=== PATIENT | female | born 1945 | race Caucasian/White ===

== ENCOUNTER 2018-04-14 13:28 | Inpatient (IN) ==
[2018-04-14] MEDS ORDERED: ALBUTEROL 2.5 MG/3 ML NEB RESP TX STA (13:40)
[2018-04-14] MEDS ORDERED: FUROSEMIDE 100 MG/10 ML VIAL IV STA (13:40)
[2018-04-14] MEDS ORDERED: SODIUM CHLORIDE 0.9% 1,000 ML IV STA ×2 (13:53→14:52)
[2018-04-14] MEDS ORDERED: NOREPINEPHRINE 4 MG/4 ML VIAL IV ONE ×3 (13:59→18:03)
[2018-04-14] MEDS ORDERED: FUROSEMIDE 100 MG/10 ML VIAL ONE (14:00)
[2018-04-14] MEDS: NOREPINEPHRINE 8 MG in SODIUM CHLORIDE 0.9% 242 ML IV PRN ×2 (14:07→18:12)
[2018-04-14 14:14] LABS: Basophils % 0.3 % (0.0-0.8); Eosinophils # 0.1 10*3/uL (0.0-0.87); Eosinophils % 0.6 % (0.00-10.9); Hematocrit 43.1 VOL% (35.7-47.0); Hemoglobin 13.8 GM/DL (12.0-16.0); Immature Granulocytes % 1.3 %; Immature Granulocytes Absolute 0.13 #; Lymphocytes # 1.7 10*3/uL (1.4-4.0); Lymphocytes % 17.7 % (21.3-54.2); Mean Corpuscular Hemoglobin 30 PG (27-34); Mean Corpuscular Volume 94.7 FL (87-102); Mean Platelet Volume 10.6 FL (9.6-12.0); Monocytes # 0.3 10*3/uL (0.11-0.8); Monocytes % 3.5 % (1.7-12.7); Neutrophils # 7.5 10*3/uL (1.4-7.4); Neutrophils % 76.6 % (38.7-73.9); Platelet Count 236 T/CUMM (130-400); Red Blood Count 4.55 MC/CUMM (3.8-5.5); Red Cell Distribution Width 14.4 % (9.3-17.3); White Blood Count 9.8 T/CUMM (4-12)
[2018-04-14 14:26] LABS: Apearance,Urine CLOUDY (Clear); Bilirubin,Urine Negative (Negative); Blood, Urine Negative (Negative); Glucose,Urine (UA) 50 mg/dL (Negative); Hyaline Casts,Urine 9 /LPF (0-3); Ketones,Urine Negative (Negative); Mucus,Urine Occasional /LPF (Occasional); Nitrite,Urine Negative (Negative); Protein,Urine >=500 MG/DL; RBC,Urine 11 /HPF (0-4); Squamous Epithelial Cell,Urine Occasional /HPF (0-10); Urine Color Amber (Yellow); Urine Specific Gravity 1.012 (1.001-1.035); Urine Urobilinogen < 2.0 EU/DL (0.2-1.0); WBC,Urine 15 /HPF (0-6)
[2018-04-14 14:32] LABS: PT Patient Result 10.4 SECS; Partial Thromboplastin Time 24.3 SECS (0-40)
[2018-04-14 14:34] LABS: Albumin 3.1 G/DL (3.4-5.0); Bilirubin,Total 0.5 MG/DL (0.2-1.0); Calcium 8.5 MG/DL (8.5-10.1); Osmolality,Calculated 292.1 MOS/KG (273-304); Potassium 4.4 MMOL/L (3.5-5.1); Total Protein 6.8 G/DL (6.4-8.3)
[2018-04-14 14:38] LABS: Lactic Acid 3.8 MMOL/L (0.4-2.0)
[2018-04-14 14:40] LABS: ABG Base Excess -3.2 MMOL/L (-2.5-2.5); ABG HCO3 24.3 MMOL/L (20-26); ABG Oxygen Saturation 99.5 % (95-100); ABG PCO2 53.6 MM HG (35-48); ABG PH 7.274 (7.35-7.45); ABG TCO2 25.9 MMOL/L (23-27); Pt O2 Delivery Device Ventilator
[2018-04-14 14:44] LABS: ABG PO2 509.5 MM HG (80-95)
[2018-04-14] MEDS ORDERED: PROPOFOL 1,000 MG/100 ML BOTTLE IV ONE (14:46)
[2018-04-14 14:48] LABS: Barbiturates Screen,Urine Negative (Negative); Benzodiazepines Screen,Urine Positive (Negative); Cannabinoid Screen,Urine Negative (Negative); Opiate Screen,Urine Negative (Negative); Phencyclidine Screen,Urine Negative (Negative)
[2018-04-14] MEDS ORDERED: cefTRIAXone 1,000 MG in SODIUM CHLORIDE 0.9% 100 ML IV STA (14:52)
[2018-04-14] MEDS: PROPOFOL 1,000 MG/100 ML BOTTLE IV SCH ×2 (14:59→21:49)
[2018-04-14] MEDS ORDERED: ACETAMINOPHEN 325 MG TABLET PO PRN (15:39)
[2018-04-14] MEDS ORDERED: DEXTROSE 50% 25 GM/50 ML VIAL IV PRN (17:03)
[2018-04-14] MEDS ORDERED: GLUCAGON 1 MG VIAL IM PRN (17:03)
[2018-04-14] MEDS: SODIUM CHLORIDE 0.9% 1,000 ML IV SCH (17:25)
[2018-04-14] MEDS: ENOXAPARIN 40 MG/0.4 ML SYRINGE SUBCUT SCH (17:25)
[2018-04-14] MEDS: INSULIN REGULAR 100 UNIT/ML SUBCUT SCH (18:34)
[2018-04-14 19:15] LABS: ABG Base Excess -2.7 MMOL/L (-2.5-2.5); ABG HCO3 22.2 MMOL/L (20-26); ABG Oxygen Saturation 98.5 % (95-100); ABG PCO2 37.5 MM HG (35-48); ABG PH 7.377 (7.35-7.45); ABG TCO2 19.2 MMOL/L (23-27); Allen Test Positive; Pt O2 Delivery Device Ventilator
[2018-04-15] MEDS: SODIUM CHLORIDE 0.9% 1,000 ML IV SCH ×3 (00:26→16:22)
[2018-04-15] MEDS: INSULIN REGULAR 100 UNIT/ML SUBCUT SCH ×5 (01:25→23:38)
[2018-04-15] MEDS: PROPOFOL 1,000 MG/100 ML BOTTLE IV SCH ×11 (01:27→23:52)
[2018-04-15] MEDS ORDERED: fentaNYL 100 MCG/2 ML VIAL IV ONE (03:42)
[2018-04-15 03:59] LABS: ABG Base Excess -2.3 MMOL/L (-2.5-2.5); ABG Oxygen Saturation 97.7 % (95-100); ABG PCO2 27.5 MM HG (35-48); ABG PH 7.479 (7.35-7.45); ABG PO2 102.7 MM HG (80-95); ABG TCO2 20.8 MMOL/L (23-27); Allen Test Positive; Pt O2 Delivery Device Ventilator
[2018-04-15 04:21] LABS: Basophils % 0.3 % (0.0-0.8); Eosinophils # 0.1 10*3/uL (0.0-0.87); Eosinophils % 0.6 % (0.00-10.9); Hematocrit 34.7 VOL% (35.7-47.0); Hemoglobin 11.5 GM/DL (12.0-16.0); Immature Granulocytes % 0.3 %; Immature Granulocytes Absolute 0.03 #; Lymphocytes # 2.9 10*3/uL (1.4-4.0); Lymphocytes % 25.4 % (21.3-54.2); Mean Corpuscular HGB Conc 33.1 GM/DL (32-36); Mean Corpuscular Hemoglobin 30 PG (27-34); Mean Corpuscular Volume 91.6 FL (87-102); Monocytes # 0.6 10*3/uL (0.11-0.8); Monocytes % 5.2 % (1.7-12.7); Neutrophils # 7.8 10*3/uL (1.4-7.4); Neutrophils % 68.2 % (38.7-73.9); Platelet Count 169 T/CUMM (130-400); Red Blood Count 3.79 MC/CUMM (3.8-5.5); Red Cell Distribution Width 14.6 % (9.3-17.3); White Blood Count 11.4 T/CUMM (4-12)
[2018-04-15 04:42] LABS: Hypochromasia 1+; Lymphocytes 32 % (20-55); Segmented Neutrophils 60 % (50-85); Total Cells Counted 100
[2018-04-15 04:43] LABS: Atypical Lymphocytes Few
[2018-04-15 04:47] LABS: Calcium 7.8 MG/DL (8.5-10.1); Osmolality,Calculated 292.8 MOS/KG (273-304); Potassium 3.2 MMOL/L (3.5-5.1)
[2018-04-15] MEDS: FAMOTIDINE 20 MG/2 ML VIAL IV SCH ×2 (09:49→20:30)
[2018-04-15] MEDS: POTASSIUM CHLORIDE 20 MEQ/15 ML UDCUP PER TUBE PRN ×4 (10:09→17:26)
[2018-04-15 10:17] LABS: ABG Base Excess -4.2 MMOL/L (-2.5-2.5); ABG HCO3 20.9 MMOL/L (20-26); ABG Oxygen Saturation 94.7 % (95-100); ABG PCO2 38.6 MM HG (35-48); ABG PH 7.345 (7.35-7.45); ABG TCO2 18.5 MMOL/L (23-27)
[2018-04-15] MEDS: ENOXAPARIN 40 MG/0.4 ML SYRINGE SUBCUT SCH (15:48)
[2018-04-15] MEDS ORDERED: ENALAPRIL 2.5 MG/2 ML VIAL IV ONE (18:30)
[2018-04-15] MEDS ORDERED: hydrALAZINE 20 MG/1 ML VIAL ONE (20:18)
[2018-04-15] MEDS: hydrALAZINE 20 MG/1 ML VIAL IV PRN (20:23)
[2018-04-16] MEDS: SODIUM CHLORIDE 0.9% 1,000 ML IV SCH ×3 (00:20→16:57)
[2018-04-16] MEDS: POTASSIUM CHLORIDE 20 MEQ/15 ML UDCUP PER TUBE PRN ×3 (00:30→08:59)
[2018-04-16] MEDS: PROPOFOL 1,000 MG/100 ML BOTTLE IV SCH ×5 (02:00→15:06)
[2018-04-16] MEDS: hydrALAZINE 20 MG/1 ML VIAL IV PRN ×4 (02:29→22:36)
[2018-04-16 03:39] LABS: ABG Base Excess -3.5 MMOL/L (-2.5-2.5); ABG HCO3 21.5 MMOL/L (20-26); ABG Oxygen Saturation 98.3 % (95-100); ABG PCO2 27.9 MM HG (35-48); ABG PH 7.446 (7.35-7.45); ABG TCO2 16.7 MMOL/L (23-27)
[2018-04-16] MEDS ORDERED: MORPHINE 4 MG/1 ML VIAL IV ONE (04:12)
[2018-04-16] MEDS ORDERED: MORPHINE 4 MG/1 ML VIAL ONE (04:18)
[2018-04-16] MEDS: LISINOPRIL 20 MG TABLET PO SCH ×2 (04:24→08:58)
[2018-04-16] MEDS: METOPROLOL TARTRATE 50 MG TABLET PO SCH ×3 (04:24→21:46)
[2018-04-16 04:58] LABS: Basophils # 0.1 10*3/uL (0.0-0.2); Basophils % 0.4 % (0.0-0.8); Eosinophils # 0.1 10*3/uL (0.0-0.87); Eosinophils % 0.9 % (0.00-10.9); Hematocrit 37.5 VOL% (35.7-47.0); Hemoglobin 12.2 GM/DL (12.0-16.0); Immature Granulocytes % 0.7 %; Immature Granulocytes Absolute 0.08 #; Lymphocytes # 2.3 10*3/uL (1.4-4.0); Mean Corpuscular HGB Conc 32.5 GM/DL (32-36); Mean Corpuscular Hemoglobin 30 PG (27-34); Mean Corpuscular Volume 91.2 FL (87-102); Mean Platelet Volume 11.7 FL (9.6-12.0); Monocytes # 0.9 10*3/uL (0.11-0.8); Monocytes % 7.4 % (1.7-12.7); Neutrophils # 8.5 10*3/uL (1.4-7.4); Neutrophils % 71.6 % (38.7-73.9); Platelet Count 182 T/CUMM (130-400); Red Blood Count 4.11 MC/CUMM (3.8-5.5); White Blood Count 11.8 T/CUMM (4-12)
[2018-04-16 05:31] LABS: Hypochromasia 1+; Platelet Estimate Adequate
[2018-04-16] MEDS: INSULIN REGULAR 100 UNIT/ML SUBCUT SCH ×3 (06:00→17:29)
[2018-04-16 06:16] LABS: Calcium 8.7 MG/DL (8.5-10.1); Osmolality,Calculated 292.6 MOS/KG (273-304); Potassium 3.7 MMOL/L (3.5-5.1)
[2018-04-16] MEDS: FAMOTIDINE 20 MG/2 ML VIAL IV SCH ×2 (08:59→20:29)
[2018-04-16] MEDS: amLODIPine 10 MG TABLET PO SCH (08:59)
[2018-04-16] MEDS ORDERED: INFLUENZA VIRUS VACCINE 0.5 ML SYRINGE IM ONE (09:00)
[2018-04-16 11:50] LABS: ABG Base Excess -3.9 MMOL/L (-2.5-2.5); ABG HCO3 21.2 MMOL/L (20-26); ABG Oxygen Saturation 97.2 % (95-100); ABG PH 7.403 (7.35-7.45); ABG TCO2 17.3 MMOL/L (23-27)
[2018-04-16 13:36] LABS: ABG Base Excess -3.6 MMOL/L (-2.5-2.5); ABG HCO3 21.4 MMOL/L (20-26); ABG Oxygen Saturation 99.6 % (95-100); ABG PH 7.359 (7.35-7.45); ABG TCO2 18.6 MMOL/L (23-27)
[2018-04-16] MEDS: LORazepam 2 MG/1 ML VIAL IV PRN ×3 (16:22→23:05)
[2018-04-16] MEDS: ENALAPRIL 2.5 MG/2 ML VIAL IV SCH ×2 (16:22→21:38)
[2018-04-16] MEDS: ENOXAPARIN 40 MG/0.4 ML SYRINGE SUBCUT SCH (16:59)
[2018-04-16] MEDS ORDERED: DILTIAZEM 50 MG/10 ML VIAL IV ONE (23:23)
[2018-04-16] MEDS ORDERED: DILTIAZEM 25 MG/5 ML VIAL IV ONE (23:25)
[2018-04-16] MEDS: dilTIAZem Drip 125 MG/125 ML PREMIX IV SCH (23:30)
[2018-04-16] MEDS ORDERED: HALOPERIDOL 5 MG/ML AMP IV ONE (23:50)
[2018-04-16] MEDS ORDERED: HALOPERIDOL 5 MG/ML AMP IV PRN (23:50)
[2018-04-17 00:28] LABS: ABG Base Excess -3.9 MMOL/L (-2.5-2.5); ABG HCO3 17.9 MMOL/L (20-26); ABG Oxygen Saturation 97.6 % (95-100); ABG PCO2 25.2 MM HG (35-48); ABG PO2 103.5 MM HG (80-95); ABG TCO2 18.7 MMOL/L (23-27); Allen Test Positive
[2018-04-17] MEDS: SODIUM CHLORIDE 0.9% 1,000 ML IV SCH ×3 (00:52→17:29)
[2018-04-17] MEDS: INSULIN REGULAR 100 UNIT/ML SUBCUT SCH ×4 (00:52→17:28)
[2018-04-17] MEDS ORDERED: METOPROLOL TARTRATE 5 MG/5 ML VIAL IV ONE (01:07)
[2018-04-17 03:50] LABS: ABG Base Excess -1.9 MMOL/L (-2.5-2.5); ABG HCO3 22.8 MMOL/L (20-26); ABG Oxygen Saturation 97.4 % (95-100); ABG PCO2 36.1 MM HG (35-48); ABG PH 7.399 (7.35-7.45); ABG PO2 95.1 MM HG (80-95); ABG TCO2 19.3 MMOL/L (23-27)
[2018-04-17 04:58] LABS: Basophils # 0.1 10*3/uL (0.0-0.2); Basophils % 0.6 % (0.0-0.8); Eosinophils # 0.1 10*3/uL (0.0-0.87); Eosinophils % 0.5 % (0.00-10.9); Hematocrit 39.5 VOL% (35.7-47.0); Hemoglobin 13.1 GM/DL (12.0-16.0); Immature Granulocytes % 1.2 %; Immature Granulocytes Absolute 0.15 #; Lymphocytes # 1.9 10*3/uL (1.4-4.0); Lymphocytes % 14.6 % (21.3-54.2); Mean Corpuscular HGB Conc 33.2 GM/DL (32-36); Mean Corpuscular Hemoglobin 30 PG (27-34); Mean Corpuscular Volume 91.6 FL (87-102); Mean Platelet Volume 10.9 FL (9.6-12.0); Monocytes # 0.9 10*3/uL (0.11-0.8); Neutrophils # 9.8 10*3/uL (1.4-7.4); Neutrophils % 76.1 % (38.7-73.9); Platelet Count 211 T/CUMM (130-400); Red Blood Count 4.31 MC/CUMM (3.8-5.5); Red Cell Distribution Width 15.5 % (9.3-17.3); White Blood Count 12.9 T/CUMM (4-12)
[2018-04-17 05:39] LABS: Osmolality,Calculated 287.8 MOS/KG (273-304); Potassium 3.2 MMOL/L (3.5-5.1)
[2018-04-17] MEDS: ENALAPRIL 2.5 MG/2 ML VIAL IV SCH ×4 (06:07→21:53)
[2018-04-17] MEDS ORDERED: NOREPINEPHRINE 4 MG/4 ML VIAL IV ONE (07:17)
[2018-04-17] MEDS: METOPROLOL TARTRATE 50 MG TABLET PO SCH ×2 (08:38→23:40)
[2018-04-17] MEDS: amLODIPine 10 MG TABLET PO SCH (08:39)
[2018-04-17] MEDS: FAMOTIDINE 20 MG/2 ML VIAL IV SCH ×2 (08:40→21:50)
[2018-04-17] MEDS: LISINOPRIL 20 MG TABLET PO SCH (08:41)
[2018-04-17] MEDS: PROPOFOL 1,000 MG/100 ML BOTTLE IV SCH (15:26)
[2018-04-17] MEDS: ENOXAPARIN 40 MG/0.4 ML SYRINGE SUBCUT SCH (16:21)
[2018-04-17] MEDS: LORazepam 2 MG/1 ML VIAL IV PRN ×2 (17:36→21:49)
[2018-04-17] MEDS: POTASSIUM CHLORIDE RIDER 10 MEQ in PREMIX 1 EACH IV PRN ×2 (17:44→18:49)
[2018-04-17] MEDS: dilTIAZem Drip 125 MG/125 ML PREMIX IV SCH (20:30)
[2018-04-18] MEDS: SODIUM CHLORIDE 0.9% 1,000 ML IV SCH ×4 (01:29→23:58)
[2018-04-18] MEDS: dilTIAZem Drip 125 MG/125 ML PREMIX IV SCH ×2 (01:59→23:57)
[2018-04-18] MEDS: INSULIN REGULAR 100 UNIT/ML SUBCUT SCH ×4 (02:01→18:00)
[2018-04-18] MEDS: ENALAPRIL 2.5 MG/2 ML VIAL IV SCH ×4 (03:42→23:30)
[2018-04-18 04:23] LABS: Basophils # 0.1 10*3/uL (0.0-0.2); Basophils % 0.6 % (0.0-0.8); Eosinophils # 0.2 10*3/uL (0.0-0.87); Hemoglobin 14.1 GM/DL (12.0-16.0); Immature Granulocytes % 0.9 %; Lymphocytes % 17.3 % (21.3-54.2); Mean Corpuscular HGB Conc 32.8 GM/DL (32-36); Mean Corpuscular Hemoglobin 30 PG (27-34); Mean Corpuscular Volume 92.5 FL (87-102); Mean Platelet Volume 10.6 FL (9.6-12.0); Monocytes # 0.7 10*3/uL (0.11-0.8); Monocytes % 5.9 % (1.7-12.7); Neutrophils # 8.3 10*3/uL (1.4-7.4); Neutrophils % 73.3 % (38.7-73.9); Platelet Count 223 T/CUMM (130-400); Red Blood Count 4.65 MC/CUMM (3.8-5.5); Red Cell Distribution Width 15.2 % (9.3-17.3); White Blood Count 11.3 T/CUMM (4-12)
[2018-04-18 04:41] LABS: Potassium 3.2 MMOL/L (3.5-5.1)
[2018-04-18] MEDS: FAMOTIDINE 20 MG/2 ML VIAL IV SCH ×2 (09:03→21:33)
[2018-04-18] MEDS: METOPROLOL TARTRATE 50 MG TABLET PO SCH ×2 (09:03→21:33)
[2018-04-18] MEDS: LISINOPRIL 20 MG TABLET PO SCH (09:03)
[2018-04-18] MEDS: amLODIPine 10 MG TABLET PO SCH (09:03)
[2018-04-18] MEDS: POTASSIUM CHLORIDE RIDER 10 MEQ in PREMIX 1 EACH IV PRN ×4 (09:27→15:34)
[2018-04-18] MEDS: ENOXAPARIN 40 MG/0.4 ML SYRINGE SUBCUT SCH (16:09)
[2018-04-19] MEDS: INSULIN REGULAR 100 UNIT/ML SUBCUT SCH ×5 (01:30→23:40)
[2018-04-19 03:44] LABS: Basophils # 0.1 10*3/uL (0.0-0.2); Basophils % 0.5 % (0.0-0.8); Eosinophils # 0.4 10*3/uL (0.0-0.87); Eosinophils % 3.3 % (0.00-10.9); Hematocrit 42.1 VOL% (35.7-47.0); Hemoglobin 13.6 GM/DL (12.0-16.0); Immature Granulocytes % 0.4 %; Immature Granulocytes Absolute 0.05 #; Lymphocytes # 2.2 10*3/uL (1.4-4.0); Lymphocytes % 19.1 % (21.3-54.2); Mean Corpuscular HGB Conc 32.3 GM/DL (32-36); Mean Corpuscular Hemoglobin 30 PG (27-34); Mean Corpuscular Volume 93.6 FL (87-102); Mean Platelet Volume 10.8 FL (9.6-12.0); Monocytes # 0.8 10*3/uL (0.11-0.8); Monocytes % 7.1 % (1.7-12.7); Neutrophils # 8.1 10*3/uL (1.4-7.4); Neutrophils % 69.6 % (38.7-73.9); Platelet Count 234 T/CUMM (130-400); Red Cell Distribution Width 14.9 % (9.3-17.3); White Blood Count 11.6 T/CUMM (4-12)
[2018-04-19 04:08] LABS: Calcium 8.9 MG/DL (8.5-10.1); Potassium 3.5 MMOL/L (3.5-5.1)
[2018-04-19] MEDS: ENALAPRIL 2.5 MG/2 ML VIAL IV SCH ×4 (05:28→22:33)
[2018-04-19] MEDS: SODIUM CHLORIDE 0.9% 1,000 ML IV SCH ×5 (06:19→23:11)
[2018-04-19] MEDS: METOPROLOL TARTRATE 50 MG TABLET PO SCH ×2 (09:32→20:00)
[2018-04-19] MEDS: FAMOTIDINE 20 MG/2 ML VIAL IV SCH ×2 (09:32→20:00)
[2018-04-19] MEDS: amLODIPine 10 MG TABLET PO SCH (09:32)
[2018-04-19] MEDS: LISINOPRIL 20 MG TABLET PO SCH (09:32)
[2018-04-19] MEDS: ALBUTEROL/IPRATROPIUM 3 ML NEB RESP TX SCH ×2 (13:56→19:20)
[2018-04-19] MEDS: ENOXAPARIN 40 MG/0.4 ML SYRINGE SUBCUT SCH (17:09)
[2018-04-19] MEDS: POTASSIUM CHLORIDE RIDER 10 MEQ in PREMIX 1 EACH IV PRN ×3 (20:00→22:09)
[2018-04-19] MEDS: dilTIAZem Drip 125 MG/125 ML PREMIX IV SCH (22:52)
[2018-04-20] MEDS: ALBUTEROL/IPRATROPIUM 3 ML NEB RESP TX SCH ×4 (01:09→19:02)
[2018-04-20] MEDS: SODIUM CHLORIDE 0.9% 1,000 ML IV SCH ×2 (02:15→10:57)
[2018-04-20] MEDS: ENALAPRIL 2.5 MG/2 ML VIAL IV SCH ×2 (03:49→11:41)
[2018-04-20] MEDS: INSULIN REGULAR 100 UNIT/ML SUBCUT SCH ×4 (06:12→16:48)
[2018-04-20] MEDS: METOPROLOL TARTRATE 50 MG TABLET PO SCH ×2 (08:35→20:29)
[2018-04-20] MEDS: FAMOTIDINE 20 MG/2 ML VIAL IV SCH (08:35)
[2018-04-20] MEDS: LISINOPRIL 20 MG TABLET PO SCH (08:35)
[2018-04-20] MEDS: amLODIPine 10 MG TABLET PO SCH (08:35)
[2018-04-20] MEDS: ENOXAPARIN 40 MG/0.4 ML SYRINGE SUBCUT SCH (16:48)
[2018-04-21] MEDS: ALBUTEROL/IPRATROPIUM 3 ML NEB RESP TX SCH ×2 (00:30→07:00)
[2018-04-21] MEDS: INSULIN REGULAR 100 UNIT/ML SUBCUT SCH ×3 (01:17→14:29)
[2018-04-21 06:16] LABS: Basophils # 0.1 10*3/uL (0.0-0.2); Basophils % 0.8 % (0.0-0.8); Eosinophils # 0.3 10*3/uL (0.0-0.87); Eosinophils % 3.8 % (0.00-10.9); Hematocrit 35.8 VOL% (35.7-47.0); Hemoglobin 11.4 GM/DL (12.0-16.0); Immature Granulocytes % 0.6 %; Immature Granulocytes Absolute 0.04 #; Lymphocytes # 2.4 10*3/uL (1.4-4.0); Lymphocytes % 36.8 % (21.3-54.2); Mean Corpuscular HGB Conc 31.8 GM/DL (32-36); Mean Corpuscular Hemoglobin 29 PG (27-34); Mean Corpuscular Volume 92.3 FL (87-102); Mean Platelet Volume 10.7 FL (9.6-12.0); Monocytes # 0.6 10*3/uL (0.11-0.8); Monocytes % 8.8 % (1.7-12.7); Neutrophils # 3.2 10*3/uL (1.4-7.4); Neutrophils % 49.2 % (38.7-73.9); Platelet Count 207 T/CUMM (130-400); Red Blood Count 3.88 MC/CUMM (3.8-5.5); Red Cell Distribution Width 14.6 % (9.3-17.3); White Blood Count 6.6 T/CUMM (4-12)
[2018-04-21 06:32] LABS: Calcium 8.7 MG/DL (8.5-10.1); Osmolality,Calculated 288.8 MOS/KG (273-304); Potassium 2.8 MMOL/L (3.5-5.1)
[2018-04-21] MEDS ORDERED: POTASSIUM CHLORIDE 20 MEQ TABLET PO ONE ×2 (08:00→14:00)
[2018-04-21 08:13] VITALS: BP 179/96
[2018-04-21] MEDS: amLODIPine 10 MG TABLET PO SCH (08:24)
[2018-04-21] MEDS: METOPROLOL TARTRATE 50 MG TABLET PO SCH (08:24)
[2018-04-21] MEDS: LISINOPRIL 20 MG TABLET PO SCH (08:24)
[2018-04-21] MEDS ORDERED: BACITRACIN OINT 0.9 GM PACK TOP SCH (12:30)
[2018-04-21] MEDS ORDERED: MEROPENEM 1,000 MG in SODIUM CHLORIDE 0.9% 100 ML IV SCH (15:00)
== END 2018-04-21 15:15 | disposition left against medical advice (07) | DRG 917 ==
LOC: N.ED 13:28 → SUATTDRO 15:39 → N.EDINP 15:39 → N.CC 16:01 → N.5E 04-20 15:20
PROVIDERS: ADMIT Internal Medicine Geriatric Medicine; ATTEND Internal Medicine

== ENCOUNTER 2022-06-05 20:02 | Inpatient (IN) ==
[2022-06-05] MEDS ORDERED: SODIUM CHLORIDE 0.9% 2,000 ML IV STA (20:22)
[2022-06-05] MEDS ORDERED: ONDANSETRON 4 MG/2 ML VIAL IV ONE (20:23)
[2022-06-05] MEDS ORDERED: NALOXONE 0.4 MG/ML VIAL IV STA (20:23)
[2022-06-05 20:28] LABS: Basophils % 0.3 % (0.0-0.8); Eosinophils % 0.1 % (0.00-10.9); Hematocrit 42.5 VOL% (35.7-47.0); Hemoglobin 14.2 GM/DL (12.0-16.0); Immature Granulocytes % 0.5 %; Immature Granulocytes Absolute 0.07 #; Lymphocytes # 1.8 10*3/uL (1.4-4.0); Mean Corpuscular HGB Conc 33.4 GM/DL (32-36); Mean Corpuscular Volume 96.2 FL (87-102); Mean Platelet Volume 11.2 FL (9.6-12.0); Monocytes # 1.1 10*3/uL (0.11-0.8); Monocytes % 7.2 % (1.7-12.7); Neutrophils % 79.9 % (38.7-73.9); Platelet Count 225 T/CUMM (130-400); Red Blood Count 4.42 MC/CUMM (3.8-5.5); Red Cell Distribution Width 13.6 % (9.3-17.3); White Blood Count 14.8 T/CUMM (4-12)
[2022-06-05 20:37] LABS: INR 1.1; PT Patient Result 12.4 SECS (10.1-12.1)
[2022-06-05 20:39] LABS: Barbiturates Screen,Urine Negative (Negative); Benzodiazepines Screen,Urine Negative (Negative); Cannabinoid Screen,Urine Negative (Negative); Opiate Screen,Urine Negative (Negative); Phencyclidine Screen,Urine Negative (Negative)
[2022-06-05 20:40] LABS: Arterial Base Excess iSTAT -5 MMOL/L (-2.5-2.5); Arterial Bicarbonate iSTAT 20.2 MMOL/L (20-26); Arterial O2 Saturation iSTAT 93 % (95-100); Arterial PCO2 iSTAT 36 MM HG (35-48); Arterial PO2 iSTAT 70 MM HG (80-95); Arterial Total CO2 iSTAT 21 MMO/L (23-27); Arterial pH iSTAT 7.361 (7.35-7.45)
[2022-06-05 20:47] LABS: Albumin 2.8 G/DL (3.4-5.0); Calcium 9.8 MG/DL (8.5-10.1); Osmolality,Calculated 298.7 MOS/KG (273-304); Potassium 3.6 MMOL/L (3.5-5.1)
[2022-06-05 21:10] LABS: Bacteria,Urine Many /HPF (Few); Mucus,Urine Occasional /LPF (Occasional); RBC,Urine 1 /HPF (0-4); Squamous Epithelial Cell,Urine Few /HPF (0-10); Urine Appearance Slightly Hazy (Clear); Urine Color Yellow (Yellow); Urine Specific Gravity >= 1.030 (1.001-1.035); Urine pH 5.5 (4.5-8.0)
[2022-06-05 21:11] LABS: Bilirubin,Urine Large mg/dL (Negative); Blood, Urine Negative (Negative); Glucose,Urine (UA) Negative (Negative); Ketones,Urine 15 mg/dL (Negative); Nitrite,Urine Negative (Negative); Protein,Urine 30 mg/dL (Negative); Urine Urobilinogen 0.2 eU/dL (<2.0)
[2022-06-05] MEDS ORDERED: PIPERACILLIN/TAZOBACTAM 3,375 MG in SODIUM CHLORIDE 0.9% 100 ML IV STA (21:45)
[2022-06-05] MEDS ORDERED: ALBUTEROL/IPRATROPIUM 3 ML NEB RESP TX STA (22:00)
[2022-06-05] MEDS ORDERED: ZALEPLON 5 MG CAPSULE PO PRN (22:00)
[2022-06-05] MEDS ORDERED: NICOTINE 21 MG/24 HR PATCH TRANSDERM PRN (22:00)
[2022-06-05] MEDS ORDERED: hydrALAZINE 20 MG/1 ML VIAL IV PRN (22:00)
[2022-06-05] MEDS ORDERED: diphenhydrAMINE CAP 25 MG CAPSULE PO PRN (22:00)
[2022-06-05] MEDS ORDERED: ONDANSETRON 4 MG/2 ML VIAL IV PRN (22:00)
[2022-06-05] MEDS ORDERED: guaiFENesin/DM ER 600-30 MG TABLET PO PRN (22:00)
[2022-06-05] MEDS ORDERED: ENOXAPARIN 100 MG/ML SYRINGE SUBCUT SCH (22:30)
[2022-06-05] MEDS: SODIUM CHLORIDE 0.9% 1,000 ML IV SCH (23:05)
[2022-06-06 01:59] LABS: Basophils % 0.3 % (0.0-0.8); Hematocrit 45.3 VOL% (35.7-47.0); Hemoglobin 14.2 GM/DL (12.0-16.0); Immature Granulocytes % 0.8 %; Immature Granulocytes Absolute 0.08 #; Lymphocytes # 1.1 10*3/uL (1.4-4.0); Lymphocytes % 11.3 % (21.3-54.2); Mean Corpuscular HGB Conc 31.3 GM/DL (32-36); Monocytes # 0.4 10*3/uL (0.11-0.8); Monocytes % 3.9 % (1.7-12.7); Neutrophils % 83.7 % (38.7-73.9); Platelet Count 170 T/CUMM (130-400); Red Cell Distribution Width 13.7 % (9.3-17.3); White Blood Count 9.9 T/CUMM (4-12)
[2022-06-06 02:35] LABS: Calcium 8.9 MG/DL (8.5-10.1); Osmolality,Calculated 295.8 MOS/KG (273-304); Potassium 3.6 MMOL/L (3.5-5.1)
[2022-06-06] MEDS: ALBUTEROL/IPRATROPIUM 3 ML NEB RESP TX SCH ×4 (06:55→19:05)
[2022-06-06] MEDS: PIPERACILLIN/TAZOBACTAM 3,375 MG in SODIUM CHLORIDE 0.9% 100 ML IV SCH ×2 (09:00→16:08)
[2022-06-06] MEDS ORDERED: INFLUENZA VIRUS VACCINE 0.5 ML SYRINGE IM ONE (09:00)
[2022-06-06] MEDS: PANTOPRAZOLE 40 MG TABLET PO SCH (09:01)
[2022-06-06] MEDS: ENOXAPARIN 80 MG/0.8 ML SYRINGE SUBCUT SCH ×2 (09:01→21:03)
[2022-06-06] MEDS ORDERED: MAGNESIUM SULF RIDER 2 GM/50 ML PREMIX IV ONE (14:47)
[2022-06-06] MEDS: VANCOMYCIN INJ 1,000 MG in SODIUM CHLORIDE 0.9% 250 ML IV SCH (14:50)
[2022-06-06] MEDS ORDERED: DEXTROSE 10% 250 ML BAG IV PRN (16:13)
[2022-06-06] MEDS ORDERED: GLUCAGON 1 MG VIAL IM PRN (16:13)
[2022-06-06] MEDS: INSULIN LISPRO 100 UNIT/ML SUBCUT SCH ×2 (16:26→21:03)
[2022-06-06] MEDS ORDERED: METOPROLOL TARTRATE 5 MG/5 ML VIAL IV ONE (19:54)
[2022-06-06] MEDS: ACETAMINOPHEN 325 MG TABLET PO PRN (21:04)
[2022-06-06] MEDS: SODIUM CHLORIDE 0.9% 1,000 ML IV SCH (22:42)
[2022-06-07] MEDS: PIPERACILLIN/TAZOBACTAM 3,375 MG in SODIUM CHLORIDE 0.9% 100 ML IV SCH ×3 (00:12→16:44)
[2022-06-07] MEDS: ALBUTEROL/IPRATROPIUM 3 ML NEB RESP TX SCH ×4 (02:14→19:10)
[2022-06-07] MEDS ORDERED: DILTIAZEM INJ 100 MG in SODIUM CHLORIDE 0.9% 100 ML IV SCH (08:30)
[2022-06-07] MEDS: ENOXAPARIN 80 MG/0.8 ML SYRINGE SUBCUT SCH ×2 (08:51→21:46)
[2022-06-07] MEDS: PANTOPRAZOLE 40 MG TABLET PO SCH (08:51)
[2022-06-07] MEDS: INSULIN LISPRO 100 UNIT/ML SUBCUT SCH ×4 (08:56→21:45)
[2022-06-07] MEDS ORDERED: AMIODARONE INJ 150 MG in DEXTROSE 5% 100 ML IV ONE (09:09)
[2022-06-07 09:27] LABS: Albumin 2.3 G/DL (3.4-5.0); Bilirubin,Total 0.9 MG/DL (0.20-1.00); Calcium 8.7 MG/DL (8.5-10.1); Osmolality,Calculated 292.1 MOS/KG (273-304); Potassium 2.8 MMOL/L (3.5-5.1)
[2022-06-07] MEDS ORDERED: AMIODARONE INJ 450 MG in DEXTROSE 5% 241 ML IV SCH (09:30)
[2022-06-07] MEDS ORDERED: MAGNESIUM SULF RIDER 2 GM/50 ML PREMIX IV ONE (12:31)
[2022-06-07] MEDS ORDERED: POTASSIUM CHLORIDE 20 MEQ TABLET PO ONE (12:31)
[2022-06-07] MEDS: ZINC OXIDE PASTE 113 GM TUBE TOP SCH (13:04)
[2022-06-07] MEDS: VANCOMYCIN INJ 1,000 MG in SODIUM CHLORIDE 0.9% 250 ML IV SCH (15:21)
[2022-06-07] MEDS: AMIODARONE INJ 450 MG in DEXTROSE 5% 241 ML IV SCH ×2 (16:21→22:27)
[2022-06-07] MEDS: DILTIAZEM 30 MG TABLET PO SCH ×2 (16:45→21:44)
[2022-06-07] MEDS: ACETAMINOPHEN 325 MG TABLET PO PRN ×2 (17:31→21:52)
[2022-06-08] MEDS: ALBUTEROL/IPRATROPIUM 3 ML NEB RESP TX SCH ×4 (00:30→19:36)
[2022-06-08] MEDS: PIPERACILLIN/TAZOBACTAM 3,375 MG in SODIUM CHLORIDE 0.9% 100 ML IV SCH ×3 (01:50→16:28)
[2022-06-08] MEDS: ZINC OXIDE PASTE 113 GM TUBE TOP SCH ×3 (02:08→21:10)
[2022-06-08] MEDS: ACETAMINOPHEN 325 MG TABLET PO PRN ×3 (05:23→21:10)
[2022-06-08 07:50] LABS: Albumin 2.1 G/DL (3.4-5.0); Bilirubin,Total 0.8 MG/DL (0.20-1.00); Calcium 8.2 MG/DL (8.5-10.1); Osmolality,Calculated 291.8 MOS/KG (273-304); Potassium 2.9 MMOL/L (3.5-5.1); Total Protein 5.8 G/DL (6.4-8.2)
[2022-06-08] MEDS: PANTOPRAZOLE 40 MG TABLET PO SCH (08:51)
[2022-06-08] MEDS: DILTIAZEM CD 120 MG CAPSULE PO SCH ×2 (08:51→21:08)
[2022-06-08] MEDS: ENOXAPARIN 80 MG/0.8 ML SYRINGE SUBCUT SCH ×2 (08:52→21:10)
[2022-06-08] MEDS: INSULIN LISPRO 100 UNIT/ML SUBCUT SCH ×4 (08:52→20:59)
[2022-06-08] MEDS: AMIODARONE INJ 450 MG in DEXTROSE 5% 241 ML IV SCH (09:29)
[2022-06-08] MEDS: SODIUM CHLORIDE 0.9% 1,000 ML IV SCH ×2 (09:31→16:29)
[2022-06-09] MEDS: PIPERACILLIN/TAZOBACTAM 3,375 MG in SODIUM CHLORIDE 0.9% 100 ML IV SCH ×4 (00:12→23:36)
[2022-06-09] MEDS: ALBUTEROL/IPRATROPIUM 3 ML NEB RESP TX SCH ×4 (01:18→19:18)
[2022-06-09] MEDS: POTASSIUM CHLORIDE 20 MEQ TABLET PO PRN ×4 (01:54→09:40)
[2022-06-09] MEDS ORDERED: oxyCODONE IR 5 MG TABLET PO PRN (02:00)
[2022-06-09] MEDS: SODIUM CHLORIDE 0.9% 1,000 ML IV SCH ×2 (05:16→16:06)
[2022-06-09] MEDS: DILTIAZEM CD 120 MG CAPSULE PO SCH ×2 (09:40→22:54)
[2022-06-09] MEDS: ENOXAPARIN 80 MG/0.8 ML SYRINGE SUBCUT SCH ×2 (09:40→22:54)
[2022-06-09] MEDS: PANTOPRAZOLE 40 MG TABLET PO SCH (09:40)
[2022-06-09] MEDS: INSULIN LISPRO 100 UNIT/ML SUBCUT SCH ×4 (09:40→22:55)
[2022-06-09] MEDS: ZINC OXIDE PASTE 113 GM TUBE TOP SCH ×2 (09:41→22:54)
[2022-06-09] MEDS: ACETAMINOPHEN 325 MG TABLET PO PRN (12:34)
[2022-06-09] MEDS: oxyCODONE IR 5 MG TABLET PO PRN (16:06)
[2022-06-10] MEDS: ALBUTEROL/IPRATROPIUM 3 ML NEB RESP TX SCH ×4 (00:36→19:20)
[2022-06-10 05:51] LABS: Basophils % 0.5 % (0.0-0.8); Eosinophils # 0.1 10*3/uL (0.0-0.87); Eosinophils % 0.9 % (0.00-10.9); Hematocrit 38.6 VOL% (35.7-47.0); Hemoglobin 12.6 GM/DL (12.0-16.0); Immature Granulocytes Absolute 0.09 #; Lymphocytes # 1.1 10*3/uL (1.4-4.0); Lymphocytes % 13.2 % (21.3-54.2); Mean Corpuscular HGB Conc 32.6 GM/DL (32-36); Mean Platelet Volume 11.2 FL (9.6-12.0); Monocytes # 0.6 10*3/uL (0.11-0.8); Monocytes % 7.1 % (1.7-12.7); Neutrophils % 77.3 % (38.7-73.9); Platelet Count 217 T/CUMM (130-400); Red Blood Count 3.94 MC/CUMM (3.8-5.5); Red Cell Distribution Width 13.8 % (9.3-17.3); White Blood Count 8.6 T/CUMM (4-12)
[2022-06-10 05:57] LABS: Calcium 8.7 MG/DL (8.5-10.1); Osmolality,Calculated 286.8 MOS/KG (273-304); Potassium 3.6 MMOL/L (3.5-5.1)
[2022-06-10] MEDS: SODIUM CHLORIDE 0.9% 1,000 ML IV SCH ×3 (06:28→19:36)
[2022-06-10] MEDS ORDERED: MAGNESIUM SULF RIDER 4 GM/100 ML PREMIX IV ONE (06:46)
[2022-06-10] MEDS: PIPERACILLIN/TAZOBACTAM 3,375 MG in SODIUM CHLORIDE 0.9% 100 ML IV SCH ×2 (08:09→17:05)
[2022-06-10] MEDS: INSULIN LISPRO 100 UNIT/ML SUBCUT SCH ×4 (10:37→20:42)
[2022-06-10] MEDS: DILTIAZEM CD 120 MG CAPSULE PO SCH (10:38)
[2022-06-10] MEDS: ZINC OXIDE PASTE 113 GM TUBE TOP SCH ×2 (10:38→20:09)
[2022-06-10] MEDS: ENOXAPARIN 80 MG/0.8 ML SYRINGE SUBCUT SCH ×2 (10:38→20:10)
[2022-06-10] MEDS: PANTOPRAZOLE 40 MG TABLET PO SCH (10:38)
[2022-06-10] MEDS: SODIUM BICARBONATE 650 MG TABLET PO SCH ×2 (13:11→20:09)
[2022-06-10] MEDS ORDERED: MAGNESIUM SULF INJ 3 GM in SODIUM CHLORIDE 0.9% 100 ML IV ONE (15:00)
[2022-06-10] MEDS: ACETAMINOPHEN 325 MG TABLET PO PRN (17:05)
[2022-06-10] MEDS: DILTIAZEM CD 180 MG CAPSULE PO SCH (20:09)
[2022-06-10] MEDS: oxyCODONE IR 5 MG TABLET PO PRN (20:09)
[2022-06-11] MEDS: ALBUTEROL/IPRATROPIUM 3 ML NEB RESP TX SCH ×4 (00:30→19:42)
[2022-06-11] MEDS: PIPERACILLIN/TAZOBACTAM 3,375 MG in SODIUM CHLORIDE 0.9% 100 ML IV SCH ×3 (00:56→15:49)
[2022-06-11] MEDS: SODIUM CHLORIDE 0.9% 1,000 ML IV SCH ×2 (03:05→17:26)
[2022-06-11 05:03] LABS: Basophils % 0.4 % (0.0-0.8); Eosinophils # 0.1 10*3/uL (0.0-0.87); Immature Granulocytes % 1.4 %; Immature Granulocytes Absolute 0.11 #; Lymphocytes # 1.5 10*3/uL (1.4-4.0); Lymphocytes % 19.4 % (21.3-54.2); Mean Corpuscular HGB Conc 33.3 GM/DL (32-36); Mean Corpuscular Volume 98.7 FL (87-102); Mean Platelet Volume 10.6 FL (9.6-12.0); Monocytes # 0.7 10*3/uL (0.11-0.8); Monocytes % 8.3 % (1.7-12.7); Neutrophils % 69.5 % (38.7-73.9); Platelet Count 206 T/CUMM (130-400); Red Blood Count 3.04 MC/CUMM (3.8-5.5); Red Cell Distribution Width 13.6 % (9.3-17.3); White Blood Count 7.9 T/CUMM (4-12)
[2022-06-11 05:22] LABS: Calcium 8.8 MG/DL (8.5-10.1); Osmolality,Calculated 281.4 MOS/KG (273-304); Potassium 3.7 MMOL/L (3.5-5.1)
[2022-06-11] MEDS: INSULIN LISPRO 100 UNIT/ML SUBCUT SCH ×4 (08:30→22:11)
[2022-06-11] MEDS: DILTIAZEM CD 180 MG CAPSULE PO SCH (08:57)
[2022-06-11] MEDS: SODIUM BICARBONATE 650 MG TABLET PO SCH ×2 (08:58→22:12)
[2022-06-11] MEDS: POTASSIUM CHLORIDE 20 MEQ TABLET PO PRN (08:58)
[2022-06-11] MEDS: ENOXAPARIN 80 MG/0.8 ML SYRINGE SUBCUT SCH (08:58)
[2022-06-11] MEDS: ZINC OXIDE PASTE 113 GM TUBE TOP SCH ×2 (08:58→22:12)
[2022-06-11] MEDS: PANTOPRAZOLE 40 MG TABLET PO SCH (08:58)
[2022-06-11] MEDS: oxyCODONE IR 5 MG TABLET PO PRN (09:51)
[2022-06-11] MEDS ORDERED: SODIUM CHLORIDE 0.9% 500 ML IV ONE ×2 (16:40→18:37)
[2022-06-11] MEDS ORDERED: oxyCODONE IR 5 MG TABLET PO PRN (16:47)
[2022-06-11 17:12] LABS: Potassium 4.6 MMOL/L (3.5-5.1)
[2022-06-11 17:37] LABS: Basophils % 0.1 % (0.0-0.8); Hematocrit 24.9 VOL% (35.7-47.0); Hemoglobin 7.9 GM/DL (12.0-16.0); Immature Granulocytes % 4.2 %; Immature Granulocytes Absolute 0.37 #; Lymphocytes # 0.8 10*3/uL (1.4-4.0); Lymphocytes % 9.2 % (21.3-54.2); Mean Corpuscular HGB Conc 31.7 GM/DL (32-36); Mean Corpuscular Volume 100.8 FL (87-102); Mean Platelet Volume 10.4 FL (9.6-12.0); Monocytes # 0.6 10*3/uL (0.11-0.8); Monocytes % 6.3 % (1.7-12.7); Neutrophils % 80.2 % (38.7-73.9); Platelet Count 261 T/CUMM (130-400); Red Blood Count 2.47 MC/CUMM (3.8-5.5); Red Cell Distribution Width 13.6 % (9.3-17.3); White Blood Count 8.8 T/CUMM (4-12)
[2022-06-11] MEDS ORDERED: SODIUM BICARBONATE 50 MEQ/50 ML VIAL IV ONE ×2 (17:45→22:41)
[2022-06-11] MEDS ORDERED: NOREPINEPHRINE DRIP 8 MG/250 ML PREMIX IV ONE (18:30)
[2022-06-11] MEDS ORDERED: SODIUM CHLORIDE 0.9% 1,000 ML IV PRN ×3 (18:31→22:41)
[2022-06-11] MEDS: NOREPINEPHRINE DRIP 8 MG/250 ML PREMIX IV PRN ×2 (19:05→22:27)
[2022-06-11 19:22] LABS: INR 1.2; PT Patient Result 13.5 SECS (10.1-12.1); Partial Thromboplastin Time 35.6 SECS (23.7-32.9)
[2022-06-11] MEDS ORDERED: SODIUM BICARB INJ 50 MEQ in DEXTROSE 5% 1,000 ML IV SCH ×2 (20:40→22:00)
[2022-06-11 21:40] LABS: ABG Base Excess -15.5 MMOL/L (-2.5-2.5); ABG HCO3 12.4 MMOL/L (20-26); ABG Oxygen Saturation 99.9 % (95-100); ABG PH 7.344 (7.35-7.45); ABG TCO2 8.7 MMOL/L (23-27)
[2022-06-11 21:52] LABS: ABG PCO2 16.9 MM HG (35-48)
[2022-06-11] MEDS: DILTIAZEM CD 120 MG CAPSULE PO SCH (22:12)
[2022-06-11] MEDS: PANTOPRAZOLE 40 MG VIAL IV SCH (22:13)
[2022-06-11] MEDS: SODIUM BICARB INJ 100 MEQ in DEXTROSE 5% 1,000 ML IV SCH (22:27)
[2022-06-11] MEDS ORDERED: PHENYLEPHRINE DRIP 40 MG/250 ML PREMIX IV ONE (22:36)
[2022-06-11] MEDS ORDERED: PHENYLEPHRINE DRIP 40 MG/250 ML PREMIX IV PRN (22:40)
[2022-06-11] MEDS ORDERED: SODIUM CHLORIDE 0.9% 1,000 ML IV ONE (22:43)
[2022-06-11] MEDS ORDERED: SODIUM BICARBONATE 50 MEQ/50 ML SYRINGE IV ONE (22:54)
[2022-06-12] MEDS: PIPERACILLIN/TAZOBACTAM 3,375 MG in SODIUM CHLORIDE 0.9% 100 ML IV SCH ×3 (00:07→16:07)
[2022-06-12] MEDS: ALBUTEROL/IPRATROPIUM 3 ML NEB RESP TX SCH ×5 (00:41→23:43)
[2022-06-12 02:19] LABS: Basophils # 0.1 10*3/uL (0.0-0.2); Basophils % 0.6 % (0.0-0.8); Eosinophils % 0.1 % (0.00-10.9); Hematocrit 29.5 VOL% (35.7-47.0); Hemoglobin 9.8 GM/DL (12.0-16.0); Immature Granulocytes Absolute 1.53 #; Lymphocytes # 1.3 10*3/uL (1.4-4.0); Lymphocytes % 7.5 % (21.3-54.2); Mean Corpuscular HGB Conc 33.2 GM/DL (32-36); Mean Corpuscular Volume 91.6 FL (87-102); Mean Platelet Volume 11.4 FL (9.6-12.0); Monocytes % 5.9 % (1.7-12.7); NRBC # 0.04 10*3/uL; Neutrophils % 76.9 % (38.7-73.9); Platelet Count 162 T/CUMM (130-400); Red Blood Count 3.22 MC/CUMM (3.8-5.5); Red Cell Distribution Width 15.7 % (9.3-17.3)
[2022-06-12 02:45] LABS: Lymphocytes 6 % (20-55); Platelet Estimate Decreased; Total Cells Counted 100
[2022-06-12 04:47] LABS: Basophils # 0.1 10*3/uL (0.0-0.2); Basophils % 0.5 % (0.0-0.8); Hematocrit 32.4 VOL% (35.7-47.0); Hemoglobin 10.9 GM/DL (12.0-16.0); Immature Granulocytes % 6.4 %; Immature Granulocytes Absolute 1.45 #; Lymphocytes # 1.5 10*3/uL (1.4-4.0); Lymphocytes % 6.8 % (21.3-54.2); Mean Corpuscular HGB Conc 33.6 GM/DL (32-36); Mean Platelet Volume 11.7 FL (9.6-12.0); Monocytes # 1.2 10*3/uL (0.11-0.8); Monocytes % 5.3 % (1.7-12.7); NRBC # 0.07 10*3/uL; Platelet Count 194 T/CUMM (130-400); Red Blood Count 3.56 MC/CUMM (3.8-5.5); Red Cell Distribution Width 15.9 % (9.3-17.3); White Blood Count 22.5 T/CUMM (4-12)
[2022-06-12 05:07] LABS: Calcium 7.5 MG/DL (8.5-10.1); Osmolality,Calculated 295.4 MOS/KG (273-304); Potassium 4.4 MMOL/L (3.5-5.1)
[2022-06-12 05:17] LABS: Lymphocytes 6 % (20-55); Platelet Estimate Adequate; Total Cells Counted 100
[2022-06-12] MEDS: DILTIAZEM CD 120 MG CAPSULE PO SCH ×2 (09:00→21:35)
[2022-06-12] MEDS: SODIUM BICARBONATE 650 MG TABLET PO SCH ×2 (09:00→21:27)
[2022-06-12] MEDS: INSULIN LISPRO 100 UNIT/ML SUBCUT SCH ×4 (09:06→21:27)
[2022-06-12] MEDS: PANTOPRAZOLE 40 MG VIAL IV SCH ×2 (09:07→21:27)
[2022-06-12] MEDS: SODIUM BICARB INJ 100 MEQ in DEXTROSE 5% 1,000 ML IV SCH ×2 (09:45→21:26)
[2022-06-12] MEDS: NOREPINEPHRINE DRIP 8 MG/250 ML PREMIX IV PRN ×2 (12:35→23:25)
[2022-06-12] MEDS: MORPHINE 2 MG/1 ML SYRINGE IV PRN ×2 (12:46→18:35)
[2022-06-12] MEDS ORDERED: BISACODYL 10 MG SUPP RECTAL ONE (14:00)
[2022-06-12 14:22] LABS: Basophils # 0.1 10*3/uL (0.0-0.2); Basophils % 0.3 % (0.0-0.8); Hematocrit 26.5 VOL% (35.7-47.0); Hemoglobin 9.3 GM/DL (12.0-16.0); Immature Granulocytes % 4.7 %; Immature Granulocytes Absolute 1.07 #; Lymphocytes # 2.2 10*3/uL (1.4-4.0); Lymphocytes % 9.9 % (21.3-54.2); Mean Corpuscular HGB Conc 35.1 GM/DL (32-36); Mean Corpuscular Volume 87.7 FL (87-102); Mean Platelet Volume 11.8 FL (9.6-12.0); Monocytes # 1.2 10*3/uL (0.11-0.8); Monocytes % 5.4 % (1.7-12.7); NRBC # 0.14 10*3/uL; Neutrophils % 79.7 % (38.7-73.9); Platelet Count 214 T/CUMM (130-400); Red Blood Count 3.02 MC/CUMM (3.8-5.5); Red Cell Distribution Width 16.4 % (9.3-17.3); White Blood Count 22.6 T/CUMM (4-12)
[2022-06-12 14:43] LABS: Anisocytosis 1+; Band Neutrophils 6 % (0-10); Lymphocytes 9 % (20-55); Platelet Estimate Normal; Total Cells Counted 100
[2022-06-12 14:55] LABS: Albumin 1.6 G/DL (3.4-5.0); Bilirubin,Total 1.3 MG/DL (0.20-1.00); Calcium 7.9 MG/DL (8.5-10.1); Osmolality,Calculated 285.7 MOS/KG (273-304); Potassium 4.6 MMOL/L (3.5-5.1)
[2022-06-12] MEDS: ZINC OXIDE PASTE 113 GM TUBE TOP SCH ×2 (15:44→21:27)
[2022-06-12] MEDS: POLYETHYLENE GLYCOL POWDER 17 GM PACK PO SCH (16:07)
[2022-06-12] MEDS: BISACODYL 5 MG TABLET PO SCH (21:27)
[2022-06-13 01:05] LABS: ABG Base Excess -0.1 MMOL/L (-2.5-2.5); ABG HCO3 24.4 MMOL/L (20-26); ABG Oxygen Saturation 99.7 % (95-100); ABG PCO2 35.4 MM HG (35-48); ABG PH 7.436 (7.35-7.45); ABG TCO2 22.4 MMOL/L (23-27)
[2022-06-13 04:05] LABS: Basophils # 0.1 10*3/uL (0.0-0.2); Basophils % 0.2 % (0.0-0.8); Hemoglobin 6.9 GM/DL (12.0-16.0); Immature Granulocytes % 5.3 %; Immature Granulocytes Absolute 1.23 #; Lymphocytes # 2.7 10*3/uL (1.4-4.0); Lymphocytes % 11.7 % (21.3-54.2); Mean Corpuscular HGB Conc 34.5 GM/DL (32-36); Mean Corpuscular Volume 87.7 FL (87-102); Mean Platelet Volume 11.5 FL (9.6-12.0); Monocytes # 1.4 10*3/uL (0.11-0.8); Monocytes % 6.2 % (1.7-12.7); NRBC # 0.47 10*3/uL; Neutrophils % 76.6 % (38.7-73.9); Platelet Count 196 T/CUMM (130-400); Red Blood Count 2.28 MC/CUMM (3.8-5.5); Red Cell Distribution Width 16.4 % (9.3-17.3); White Blood Count 23.1 T/CUMM (4-12)
[2022-06-13] MEDS ORDERED: SODIUM CHLORIDE 0.9% 1,000 ML IV PRN (04:19)
[2022-06-13 04:25] LABS: Albumin 1.5 G/DL (3.4-5.0); Bilirubin,Total 1.3 MG/DL (0.20-1.00); Calcium 7.6 MG/DL (8.5-10.1); Osmolality,Calculated 283.1 MOS/KG (273-304); Potassium 4.7 MMOL/L (3.5-5.1)
[2022-06-13 04:28] LABS: Lymphocytes 15 % (20-55); Platelet Estimate Adequate; Total Cells Counted 100
[2022-06-13 04:29] LABS: Hypochromia 1+; Microcytosis 1+
[2022-06-13] MEDS: ALBUTEROL/IPRATROPIUM 3 ML NEB RESP TX SCH ×3 (07:23→19:55)
[2022-06-13] MEDS: SODIUM BICARB INJ 100 MEQ in DEXTROSE 5% 1,000 ML IV SCH ×2 (08:40→17:20)
[2022-06-13] MEDS: PIPERACILLIN/TAZOBACTAM 3,375 MG in SODIUM CHLORIDE 0.9% 100 ML IV SCH ×2 (08:41)
[2022-06-13] MEDS: SODIUM BICARBONATE 650 MG TABLET PO SCH ×2 (08:42→20:41)
[2022-06-13] MEDS: DILTIAZEM CD 120 MG CAPSULE PO SCH (08:42)
[2022-06-13] MEDS: INSULIN LISPRO 100 UNIT/ML SUBCUT SCH ×4 (08:42→20:40)
[2022-06-13] MEDS: POLYETHYLENE GLYCOL POWDER 17 GM PACK PO SCH (08:42)
[2022-06-13] MEDS: PANTOPRAZOLE 40 MG VIAL IV SCH ×2 (08:43→20:40)
[2022-06-13 09:01] LABS: Basophils # 0.1 10*3/uL (0.0-0.2); Basophils % 0.4 % (0.0-0.8); Hematocrit 29.3 VOL% (35.7-47.0); Hemoglobin 10.2 GM/DL (12.0-16.0); Immature Granulocytes % 5.9 %; Immature Granulocytes Absolute 1.45 #; Lymphocytes # 1.9 10*3/uL (1.4-4.0); Lymphocytes % 7.6 % (21.3-54.2); Mean Corpuscular HGB Conc 34.8 GM/DL (32-36); Mean Corpuscular Volume 86.7 FL (87-102); Mean Platelet Volume 11.9 FL (9.6-12.0); Monocytes # 1.3 10*3/uL (0.11-0.8); Monocytes % 5.1 % (1.7-12.7); NRBC # 0.67 10*3/uL; Platelet Count 181 T/CUMM (130-400); Red Blood Count 3.38 MC/CUMM (3.8-5.5); Red Cell Distribution Width 15.2 % (9.3-17.3); White Blood Count 24.5 T/CUMM (4-12)
[2022-06-13 09:10] LABS: INR 1.4; PT Patient Result 15.6 SECS (10.1-12.1)
[2022-06-13] MEDS: NOREPINEPHRINE DRIP 8 MG/250 ML PREMIX IV PRN (09:20)
[2022-06-13 09:28] LABS: Hypochromia Slight; Lymphocytes 7 % (20-55); Microcytosis Slight; Nucleated Red Blood Cells 4 /100 WBC (0-5); Platelet Estimate Adequate; Total Cells Counted 100
[2022-06-13] MEDS: ZINC OXIDE PASTE 113 GM TUBE TOP SCH ×2 (09:50→20:40)
[2022-06-13 15:52] LABS: ABG Base Excess 3.2 MMOL/L (-2.5-2.5); ABG HCO3 27.2 MMOL/L (20-26); ABG Oxygen Saturation 95.9 % (95-100); ABG PCO2 39.5 MM HG (35-48); ABG PH 7.448 (7.35-7.45); ABG PO2 78.7 MM HG (80-95); ABG TCO2 25.4 MMOL/L (23-27)
[2022-06-13] MEDS: BISACODYL 5 MG TABLET PO SCH (20:40)
[2022-06-13] MEDS: MORPHINE 2 MG/1 ML SYRINGE IV PRN (21:25)
[2022-06-14] MEDS: ALBUTEROL/IPRATROPIUM 3 ML NEB RESP TX SCH ×4 (00:04→19:44)
[2022-06-14 03:41] LABS: Basophils % 0.1 % (0.0-0.8); Eosinophils % 0.1 % (0.00-10.9); Hematocrit 20.6 VOL% (35.7-47.0); Hemoglobin 7.3 GM/DL (12.0-16.0); Immature Granulocytes % 5.1 %; Lymphocytes # 1.8 10*3/uL (1.4-4.0); Lymphocytes % 8.4 % (21.3-54.2); Mean Corpuscular HGB Conc 35.4 GM/DL (32-36); Mean Corpuscular Volume 87.3 FL (87-102); Mean Platelet Volume 10.9 FL (9.6-12.0); Monocytes # 0.9 10*3/uL (0.11-0.8); Neutrophils % 82.3 % (38.7-73.9); Platelet Count 143 T/CUMM (130-400); Red Blood Count 2.36 MC/CUMM (3.8-5.5); Red Cell Distribution Width 15.6 % (9.3-17.3); White Blood Count 21.4 T/CUMM (4-12)
[2022-06-14] MEDS: SODIUM BICARB INJ 100 MEQ in DEXTROSE 5% 1,000 ML IV SCH (04:11)
[2022-06-14 04:12] LABS: Albumin 1.6 G/DL (3.4-5.0); Bilirubin,Total 1.9 MG/DL (0.20-1.00); Calcium 7.7 MG/DL (8.5-10.1); Osmolality,Calculated 278.2 MOS/KG (273-304); Potassium 4.1 MMOL/L (3.5-5.1); Total Protein 4.3 G/DL (6.4-8.2)
[2022-06-14] MEDS ORDERED: SODIUM CHLORIDE 0.9% 1,000 ML IV PRN ×2 (04:25→04:28)
[2022-06-14 04:55] LABS: Hypochromia Slight; Lymphocytes 12 % (20-55); Microcytosis Slight; Nucleated Red Blood Cells 3 /100 WBC (0-5); Platelet Estimate Adequate; Total Cells Counted 100
[2022-06-14] MEDS: INSULIN LISPRO 100 UNIT/ML SUBCUT SCH (07:45)
[2022-06-14] MEDS: MORPHINE 2 MG/1 ML SYRINGE IV PRN ×3 (07:55→14:25)
[2022-06-14] MEDS: POLYETHYLENE GLYCOL POWDER 17 GM PACK PO SCH (08:48)
[2022-06-14] MEDS: ZINC OXIDE PASTE 113 GM TUBE TOP SCH ×2 (09:10→21:00)
[2022-06-14] MEDS: LORazepam 2 MG/1 ML VIAL IV PRN (16:04)
[2022-06-15] MEDS: MORPHINE 2 MG/1 ML SYRINGE IV PRN ×3 (03:26→13:00)
[2022-06-15] MEDS: ALBUTEROL/IPRATROPIUM 3 ML NEB RESP TX SCH ×3 (07:24→12:08)
[2022-06-15] MEDS: ZINC OXIDE PASTE 113 GM TUBE TOP SCH ×2 (08:49→21:25)
[2022-06-15] MEDS: LORazepam 2 MG/1 ML VIAL IV PRN (13:38)
[2022-06-16] MEDS: MORPHINE 2 MG/1 ML SYRINGE IV PRN ×2 (06:21→13:08)
[2022-06-16] MEDS: ZINC OXIDE PASTE 113 GM TUBE TOP SCH ×2 (10:55→23:30)
[2022-06-17] MEDS: LORazepam 2 MG/1 ML VIAL IV PRN (02:35)
[2022-06-17] MEDS: ZINC OXIDE PASTE 113 GM TUBE TOP SCH ×2 (12:25→21:14)
[2022-06-17] MEDS: SCOPOLAMINE 1.5 MG PATCH TRANSDERM SCH (16:24)
[2022-06-18] MEDS: ZINC OXIDE PASTE 113 GM TUBE TOP SCH ×2 (10:41→22:31)
[2022-06-18] MEDS: MORPHINE 2 MG/1 ML SYRINGE IV PRN ×2 (13:10→22:43)
[2022-06-19] MEDS: LORazepam 2 MG/1 ML VIAL IV PRN ×2 (01:35→16:15)
[2022-06-19] MEDS: MORPHINE 2 MG/1 ML SYRINGE IV PRN ×2 (06:15→16:15)
[2022-06-19] MEDS: ZINC OXIDE PASTE 113 GM TUBE TOP SCH ×2 (10:33→21:08)
[2022-06-20] MEDS: SCOPOLAMINE 1.5 MG PATCH TRANSDERM SCH (10:32)
[2022-06-20] MEDS: ZINC OXIDE PASTE 113 GM TUBE TOP SCH ×2 (10:32→21:07)
[2022-06-21] MEDS: ZINC OXIDE PASTE 113 GM TUBE TOP SCH ×2 (11:34→21:59)
[2022-06-22] MEDS: ZINC OXIDE PASTE 113 GM TUBE TOP SCH ×2 (11:22→21:01)
[2022-06-22] MEDS ORDERED: MORPHINE 2 MG/1 ML SYRINGE IV SCH (11:30)
[2022-06-22] MEDS: MORPHINE 2 MG/1 ML SYRINGE IV PRN ×2 (17:28→21:01)
[2022-06-23] MEDS: MORPHINE 2 MG/1 ML SYRINGE IV PRN ×4 (01:42→20:27)
[2022-06-23] MEDS: LORazepam 2 MG/1 ML VIAL IV PRN (08:40)
[2022-06-23] MEDS: SCOPOLAMINE 1.5 MG PATCH TRANSDERM SCH (08:44)
[2022-06-23] MEDS: ZINC OXIDE PASTE 113 GM TUBE TOP SCH ×2 (08:45→20:27)
[2022-06-24] MEDS: LORazepam 2 MG/1 ML VIAL IV PRN (02:25)
[2022-06-24] MEDS: MORPHINE 2 MG/1 ML SYRINGE IV PRN ×4 (05:45→18:30)
[2022-06-24] MEDS: ZINC OXIDE PASTE 113 GM TUBE TOP SCH (10:39)
[2022-06-24] MEDS ORDERED: LORazepam 2 MG/1 ML VIAL IV PRN (10:51)
[2022-06-24 11:02] VITALS: BP 97/60
== END 2022-06-24 19:55 | disposition expired | DRG 871 ==
LOC: N.ED 20:02 → SUATTDRO 22:00 → N.EDINP 22:00 → N.TELEN 06-06 00:34 → N.CC 06-11 18:28 → N.TELEN 06-15 15:12
PROVIDERS: ADMIT Emergency Medicine; ATTEND Hospitalist